=== PATIENT | female | born 1970 | race Hispanic/Latino ===

== ENCOUNTER 2018-04-12 16:55 | Emergency (ER) | payer SELFPAY ==
[~2018-04-12] VITALS: Ht 162.6 cm; Wt 115.7 kg
[~2018-04-12 16:55] MED LIST: CATAPRES0.1 MG PO; VASOTEC20 MG PO
[2018-04-12] MEDS: LISINOPRIL 20 MG TAB PO ONE ×2 (17:29→17:39)
[2018-04-12] MEDS: ENALAPRIL MALEATE 10 MG TAB PO ONE (17:31)
[2018-04-12] MEDS: AMLODIPINE BESYLATE 5 MG TAB PO ONE (17:39)
[2018-04-12 18:43] VITALS: BP 176/105
== END 2018-04-12 18:46 | disposition home or self-care (01) ==
LOC: ER 16:55
DX: S90.31XA Contusion of right foot, initial encounter (principal); S80.212A Abrasion, left knee, initial encounter; W01.0XXA Fall on same level from slipping, tripping and stumbling without subsequent striking against object, initial encounter; Y93.01 Activity, walking, marching and hiking; Y92.488 Other paved roadways as the place of occurrence of the external cause; I10 Essential (primary) hypertension
CPT/HCPCS: 99283

== ENCOUNTER 2022-03-22 13:16 | Emergency (ER) | payer SELFPAY ==
[~2022-03-22] VITALS: Ht 162.6 cm; Wt 115.7 kg
== END 2022-03-22 17:25 | disposition home or self-care (01) ==
LOC: ER 14:34
DX: H60.91 Unspecified otitis externa, right ear (principal); I10 Essential (primary) hypertension; G47.30 Sleep apnea, unspecified; J45.909 Unspecified asthma, uncomplicated
CPT/HCPCS: 99283

== ENCOUNTER 2023-02-04 07:40 | Emergency (ER) | payer SELFPAY ==
[~2023-02-04] VITALS: Ht 162.6 cm; Wt 115.7 kg
[2023-02-04] MEDS ORDERED: BACTRIM DS TAB1 EACH PO (07:50)
== END 2023-02-04 08:06 | disposition home or self-care (01) ==
LOC: ER 07:45
DX: T22.211A Burn of second degree of right forearm, initial encounter (principal); X12.XXXA Contact with other hot fluids, initial encounter; Y92.89 Other specified places as the place of occurrence of the external cause; I10 Essential (primary) hypertension; J45.909 Unspecified asthma, uncomplicated; G47.30 Sleep apnea, unspecified
CPT/HCPCS: 99283